=== PATIENT | female | born 1930 | race Caucasian/White ===

== ENCOUNTER 2017-12-14 17:46 | Emergency (ER) | payer MEDICARE ==
[~2017-12-14] VITALS: Ht 162.6 cm; Wt 75.0 kg
[~2017-12-14 17:46] MED LIST: ERGO2000 PO; LISI-170 PO; LOVA20TA2 PO; METF500T4 PO
[2017-12-14] MEDS ORDERED: SODIUM CHLORIDE FLUSH 10ML SYR IVF ONE (18:30)
[2017-12-14] MEDS ORDERED: METOPROLOL 1 MG/ML, 5ML IVPush ONE (18:30)
[2017-12-14 18:58] LABS: BASOPHILS # (AUTO) 0.03 x10^3/uL (0-0.1); BASOPHILS % (AUTO) 0 % (0-1); EOSINOPHILS # (AUTO) 0.06 x10^3/uL (0-0.4); EOSINOPHILS % (AUTO) 1 % (1-7); LYMPHOCYTES # (AUTO) 1.21 x10^3/uL (1-3.4); LYMPHOCYTES % (AUTO) 15 % (22-44); MD NO; MEAN CORPUSCULAR HEMOGLOBIN 28.5 pg (27.0-34.8); MEAN CORPUSCULAR HGB CONC 32.6 g/dL (32.4-35.8); MEAN CORPUSCULAR VOLUME 87.4 fL (80-100); MEAN PLATELET VOLUME 9.3 fL (7.4-10.4); MONOCYTES # (AUTO) 0.64 x10^3/uL (0.2-0.8); MONOCYTES % (AUTO) 8 % (2-9); NEUTROPHILS # (AUTO) 6.16 x10^3/uL (1.8-6.8); NEUTROPHILS % (AUTO) 76 % (42-75); PLATELET COUNT 246 x10^3/uL (130-400); RED BLOOD COUNT 4.52 x10^6/uL (3.82-5.3); RED CELL DISTRIBUTION WIDTH 17.6 % (9.6-15.2)
[2017-12-14 19:04] LABS: INTERNATIONAL NORMALIZED RATIO 0.98 (0.93-1.1); PROTHROMBIN TIME 10.2 Seconds (9.6-11.5)
[2017-12-14 19:09] LABS: TROPONIN I < 0.015 ng/mL (0.000-0.045)
[2017-12-14 19:12] LABS: ALANINE AMINOTRANSFERASE 29 U/L (12-78); ALBUMIN 3.7 g/dL (3.4-5.0); ANION GAP 8 mmol/L (5-15); CALCIUM 8.6 mg/dL (8.5-10.1); CHLORIDE 109 mmol/L (98-107); CREATININE 0.98 mg/dL (0.55-1.02)
[2017-12-14 19:16] LABS: ALKALINE PHOSPHATASE 65 U/L (45-117); BILIRUBIN,TOTAL 0.3 mg/dL (0.2-1.0); TOTAL PROTEIN 6.7 g/dL (6.4-8.2)
[2017-12-14 19:42] VITALS: BP 157/86
== END 2017-12-14 19:53 | disposition home or self-care (01) ==
LOC: ED 19:47
DX: S50.11XA Contusion of right forearm, initial encounter (principal); S50.311A Abrasion of right elbow, initial encounter; R22.0 Localized swelling, mass and lump, head; I48.2 Chronic atrial fibrillation; E11.9 Type 2 diabetes mellitus without complications; I10 Essential (primary) hypertension; Z88.5 Allergy status to narcotic agent; W18.39XA Other fall on same level, initial encounter; Y93.89 Activity, other specified; Y92.098 Other place in other non-institutional residence as the place of occurrence of the external cause; Y99.8 Other external cause status
CPT/HCPCS: 36415; 70450; 71045; 80053; 83880; 84484; 85025; 85610; 85730; 93005; 96374

== ENCOUNTER 2017-12-26 11:09 | Inpatient (IN) | payer MEDICARE ==
[~2017-12-26] VITALS: Ht 162.6 cm; Wt 84.9 kg
[2017-12-26] MEDS ORDERED: METO25TA35 PO (11:48)
[2017-12-26] MEDS ORDERED: ERGO500017 PO (11:48)
[2017-12-26] MEDS ORDERED: FURO20TA3 PO (11:48)
[2017-12-26] MEDS ORDERED: LISI-167 PO (11:48)
[2017-12-26] MEDS ORDERED: ASPI-496 PO (11:48)
[2017-12-26] MEDS ORDERED: SODIUM CHLORIDE FLUSH 10ML SYR IVF ONE (12:00)
[2017-12-26 12:25] LABS: BASOPHILS # (AUTO) 0.01 x10^3/uL (0-0.1); BASOPHILS % (AUTO) 0 % (0-1); EOSINOPHILS # (AUTO) 0.09 x10^3/uL (0-0.4); EOSINOPHILS % (AUTO) 2 % (1-7); LYMPHOCYTES # (AUTO) 1.24 x10^3/uL (1-3.4); LYMPHOCYTES % (AUTO) 21 % (22-44); MD NO; MEAN CORPUSCULAR HEMOGLOBIN 28.7 pg (27.0-34.8); MEAN CORPUSCULAR HGB CONC 32.3 g/dL (32.4-35.8); MEAN CORPUSCULAR VOLUME 88.8 fL (80-100); MEAN PLATELET VOLUME 8.7 fL (7.4-10.4); MONOCYTES # (AUTO) 0.53 x10^3/uL (0.2-0.8); MONOCYTES % (AUTO) 9 % (2-9); NEUTROPHILS # (AUTO) 4.15 x10^3/uL (1.8-6.8); NEUTROPHILS % (AUTO) 69 % (42-75); PLATELET COUNT 283 x10^3/uL (130-400); RED BLOOD COUNT 4.48 x10^6/uL (3.82-5.3); RED CELL DISTRIBUTION WIDTH 17.9 % (9.6-15.2)
[2017-12-26 12:36] LABS: ALBUMIN 3.6 g/dL (3.4-5.0); ANION GAP 8 mmol/L (5-15); CALCIUM 8.9 mg/dL (8.5-10.1); CHLORIDE 110 mmol/L (98-107); CREATININE 1.17 mg/dL (0.55-1.02)
[2017-12-26 12:37] LABS: D-DIMER 0.46 ug/mlFEU (0.00-0.52); INTERNATIONAL NORMALIZED RATIO 0.99 (0.93-1.1); PROTHROMBIN TIME 10.3 Seconds (9.6-11.5)
[2017-12-26 12:47] LABS: FREE T4 (FREE THYROXINE) 1.09 ng/dL (0.76-1.46)
[2017-12-26 12:48] LABS: TROPONIN I 0.141 ng/mL (0.000-0.045)
[2017-12-26] MEDS ORDERED: DOCUSATE 100 MG CAPSULE PO PRN (14:00)
[2017-12-26] MEDS ORDERED: ACETAMINOPHEN 325 MG TABLET PO PRN (14:00)
[2017-12-26] MEDS ORDERED: POLYETHYLENE GLYCOL 17 GM PACKET PO PRN (14:00)
[2017-12-26] MEDS ORDERED: ERGOCALCIFEROL 50,000 UNIT CAPSULE PO SCH (14:00)
[2017-12-26] MEDS ORDERED: hydrALAzine 20 MG/ML, 1ML IVPush PRN (14:00)
[2017-12-26] MEDS ORDERED: BISACODYL 10 MG SUPP PR PRN (14:00)
[2017-12-26] MEDS ORDERED: ONDANSETRON 2MG/ML, 2ML IVPush PRN (14:00)
[2017-12-26] MEDS ORDERED: SODIUM CHLORIDE FLUSH 10ML SYR IVF PRN (14:30)
[2017-12-26 17:23] VITALS: BP 145/79
[2017-12-26] MEDS: ENOXAPARIN 40 MG/0.4 ML SQ SCH (17:52)
[2017-12-26] MEDS: POTASSIUM CHLORIDE 20 MEQ TAB.ER.PRT PO SCH (17:52)
[2017-12-26] MEDS: FUROSEMIDE 20 MG/2 ML IV SCH (17:53)
[2017-12-26 19:16] LABS: TROPONIN I 0.078 ng/mL (0.000-0.045)
[2017-12-26 21:17] VITALS: BP 144/67
[2017-12-26] MEDS: LOVASTATIN 20 MG TABLET PO SCH ×2 (21:39→21:46)
[2017-12-26] MEDS: metFORMIN 500 MG TABLET PO SCH (21:39)
[2017-12-26] MEDS: SODIUM CHLORIDE FLUSH 10ML SYR IVF SCH (21:39)
[2017-12-26 22:18] LABS: CLOSTRIDIUM DIFFICILE ANTIGEN NEGATIVE; CLOSTRIDIUM DIFFICILE TOXIN NEGATIVE (Negative)
[2017-12-27 01:21] LABS: TROPONIN I 0.073 ng/mL (0.000-0.045)
[2017-12-27 02:10] VITALS: BP 139/59
[2017-12-27] MEDS ORDERED: METOPROLOL SUCCINATE 25 MG TAB.ER.24H PO SCH (06:00)
[2017-12-27 06:26] LABS: ANION GAP 7 mmol/L (5-15); CALCIUM 8.3 mg/dL (8.5-10.1); CHLORIDE 111 mmol/L (98-107)
[2017-12-27 06:29] LABS: BASOPHILS # (AUTO) 0.03 x10^3/uL (0-0.1); BASOPHILS % (AUTO) 1 % (0-1); CREATININE 0.94 mg/dL (0.55-1.02); EOSINOPHILS # (AUTO) 0.09 x10^3/uL (0-0.4); EOSINOPHILS % (AUTO) 2 % (1-7); LYMPHOCYTES # (AUTO) 1.32 x10^3/uL (1-3.4); LYMPHOCYTES % (AUTO) 24 % (22-44); MD NO; MEAN CORPUSCULAR HEMOGLOBIN 28.7 pg (27.0-34.8); MEAN CORPUSCULAR HGB CONC 32.6 g/dL (32.4-35.8); MEAN CORPUSCULAR VOLUME 87.9 fL (80-100); MEAN PLATELET VOLUME 9.1 fL (7.4-10.4); MONOCYTES # (AUTO) 0.61 x10^3/uL (0.2-0.8); MONOCYTES % (AUTO) 11 % (2-9); NEUTROPHILS # (AUTO) 3.55 x10^3/uL (1.8-6.8); NEUTROPHILS % (AUTO) 64 % (42-75); PLATELET COUNT 238 x10^3/uL (130-400); RED BLOOD COUNT 3.88 x10^6/uL (3.82-5.3); RED CELL DISTRIBUTION WIDTH 17.1 % (9.6-15.2)
[2017-12-27 06:30] LABS: HEMOGRAM NOTE RECHECKED
[2017-12-27] MEDS: FUROSEMIDE 20 MG/2 ML IV SCH ×2 (06:31→16:35)
[2017-12-27 09:43] VITALS: BP 100/57
[2017-12-27] MEDS: metFORMIN 500 MG TABLET PO SCH ×2 (09:48→20:48)
[2017-12-27] MEDS: SODIUM CHLORIDE FLUSH 10ML SYR IVF SCH ×2 (09:48→20:48)
[2017-12-27] MEDS: POTASSIUM CHLORIDE 20 MEQ TAB.ER.PRT PO SCH ×2 (09:48→16:35)
[2017-12-27] MEDS: ASPIRIN 81 MG TABLET EC PO SCH (09:48)
[2017-12-27] MEDS: LISINOPRIL 10 MG TABLET PO SCH ×2 (09:48→10:00)
[2017-12-27] MEDS: ENOXAPARIN 40 MG/0.4 ML SQ SCH (15:15)
[2017-12-27 16:23] VITALS: BP 107/57
[2017-12-27 20:00] VITALS: BP 125/71
[2017-12-27] MEDS: LOVASTATIN 20 MG TABLET PO SCH (20:48)
[2017-12-28 01:10] VITALS: BP 112/67
[2017-12-28 04:28] VITALS: BP 134/63
[2017-12-28 05:48] LABS: ANION GAP 8 mmol/L (5-15); CALCIUM 8.9 mg/dL (8.5-10.1); CHLORIDE 105 mmol/L (98-107)
[2017-12-28 05:50] LABS: CREATININE 1.06 mg/dL (0.55-1.02)
[2017-12-28] MEDS: FUROSEMIDE 20 MG/2 ML IV SCH ×2 (06:22→17:21)
[2017-12-28 07:00] VITALS: BP 107/47
[2017-12-28] MEDS: SODIUM CHLORIDE FLUSH 10ML SYR IVF SCH ×2 (08:35→20:47)
[2017-12-28] MEDS: ASPIRIN 81 MG TABLET EC PO SCH (08:35)
[2017-12-28] MEDS: metFORMIN 500 MG TABLET PO SCH ×2 (08:35→20:46)
[2017-12-28] MEDS: POTASSIUM CHLORIDE 20 MEQ TAB.ER.PRT PO SCH ×2 (08:35→17:21)
[2017-12-28 13:00] VITALS: BP 126/62
[2017-12-28] MEDS: ENOXAPARIN 40 MG/0.4 ML SQ SCH (15:12)
[2017-12-28 19:42] VITALS: BP 137/71
[2017-12-28] MEDS: LOVASTATIN 20 MG TABLET PO SCH (20:46)
[2017-12-29 01:14] VITALS: BP 122/73
[2017-12-29 05:44] LABS: ANION GAP 6 mmol/L (5-15); CALCIUM 8.4 mg/dL (8.5-10.1); CHLORIDE 104 mmol/L (98-107)
[2017-12-29 05:46] LABS: CREATININE 1.31 mg/dL (0.55-1.02)
[2017-12-29 07:30] VITALS: BP 114/67
[2017-12-29] MEDS: POTASSIUM CHLORIDE 20 MEQ TAB.ER.PRT PO SCH (08:03)
[2017-12-29] MEDS: FUROSEMIDE 20 MG/2 ML IV SCH (08:03)
[2017-12-29] MEDS: ASPIRIN 81 MG TABLET EC PO SCH (08:34)
[2017-12-29] MEDS: metFORMIN 500 MG TABLET PO SCH (08:34)
[2017-12-29] MEDS: SODIUM CHLORIDE FLUSH 10ML SYR IVF SCH (08:35)
[2017-12-29] MEDS ORDERED: FUROSEMIDE 40 MG TABLET PO SCH (09:00)
[2017-12-29] MEDS ORDERED: POTASSIUM CHLORIDE 20 MEQ TAB.ER.PRT PO SCH (09:00)
[2017-12-29] MEDS ORDERED: POTA20TA6 PO (11:15)
[2017-12-29] MEDS ORDERED: FURO40TA6 PO (11:15)
[2017-12-29 12:35] VITALS: BP 123/59
[2017-12-29] MEDS ORDERED: ENOXAPARIN 30 MG/0.3 ML SQ SCH (15:00)
== END 2017-12-29 18:58 | disposition home or self-care (01) | DRG 291 ==
LOC: ED 11:29 → EDIP 13:54 → 5SO 15:51
PROVIDERS: ADMIT Internal Medicine Cardiovascular Disease; ATTEND Internal Medicine Cardiovascular Disease
DX: I11.0 Hypertensive heart disease with heart failure (principal); N17.0 Acute kidney failure with tubular necrosis; E11.65 Type 2 diabetes mellitus with hyperglycemia; E83.42 Hypomagnesemia; I27.20 Pulmonary hypertension, unspecified; J98.11 Atelectasis; I50.9 Heart failure, unspecified; I48.91 Unspecified atrial fibrillation; E78.5 Hyperlipidemia, unspecified; G47.30 Sleep apnea, unspecified; I08.0 Rheumatic disorders of both mitral and aortic valves; Z66 Do not resuscitate; Z60.2 Problems related to living alone; Z79.84 Long term (current) use of oral hypoglycemic drugs; Z82.3 Family history of stroke; Z82.49 Family history of ischemic heart disease and other diseases of the circulatory system; Z87.891 Personal history of nicotine dependence; Z90.710 Acquired absence of both cervix and uterus; Z95.2 Presence of prosthetic heart valve; Z79.899 Other long term (current) drug therapy; Z79.82 Long term (current) use of aspirin; Z90.89 Acquired absence of other organs; Z90.49 Acquired absence of other specified parts of digestive tract
CPT/HCPCS: 36415; 71045; 80048; 82040; 83735; 84439; 84443; 84484; 85025; 85379; 85610; 85730; 87324; 93005; 93306; 99285; J1650; J1940

== ENCOUNTER → 2018-02-09 | Outpatient (CLI) | payer MEDICARE ==
[~2018-02-09] MED LIST changes: +APIX2.5T PO; +ASPI-496 PO; +ERGO500017 PO; +FURO20TA3 PO; +FURO40TA6 PO; +LISI-167 PO; -METF500T4 PO; +METF500T5 PO; +METO25TA35 PO; +METOPROLOL 1 MG/ML, 5ML ONE; +OMNIPAQUE 350 MG/ML, 150 ML BOTTLE ONE; +POTA10TA6 PO; +POTA20TA6 PO; +SITA1TBM PO
[2018-02-09 13:30] LABS: CREATININE 1.08 mg/dL (0.55-1.02)
== END | disposition home or self-care (01) ==
LOC: RAD 12:13
PROVIDERS: ATTEND Internal Medicine Cardiovascular Disease
DX: I35.0 Nonrheumatic aortic (valve) stenosis (principal); I65.23 Occlusion and stenosis of bilateral carotid arteries; I70.0 Atherosclerosis of aorta; I25.10 Atherosclerotic heart disease of native coronary artery without angina pectoris; I11.9 Hypertensive heart disease without heart failure; E11.8 Type 2 diabetes mellitus with unspecified complications; E78.5 Hyperlipidemia, unspecified; E04.1 Nontoxic single thyroid nodule; N20.0 Calculus of kidney; K82.8 Other specified diseases of gallbladder; K76.0 Fatty (change of) liver, not elsewhere classified; Z88.5 Allergy status to narcotic agent
CPT/HCPCS: 36415; 71275; 74174; 82565; 93880; 94060; 94726; 94729; Q9967

== ENCOUNTER 2018-02-13 09:43 | Day surgery (SDC) | payer MEDICARE ==
[~2018-02-13] VITALS: Ht 162.6 cm; Wt 75.9 kg
[~2018-02-13 09:43] MED LIST changes: -APIX2.5T PO; -METOPROLOL 1 MG/ML, 5ML ONE; -OMNIPAQUE 350 MG/ML, 150 ML BOTTLE ONE; -POTA10TA6 PO; -SITA1TBM PO
[2018-02-13] MEDS ORDERED: SODIUM CHLORIDE 0.9% 1,000 ML IV ONE (10:13)
[2018-02-13 10:16] VITALS: BP 127/56
[2018-02-13] MEDS ORDERED: SITA1TBM PO (10:26)
[2018-02-13] MEDS ORDERED: APIX2.5T PO (10:26)
[2018-02-13] MEDS ORDERED: POTA10TA6 PO (10:27)
[2018-02-13 10:59] LABS: BASOPHILS # (AUTO) 0.03 x10^3/uL (0-0.1); BASOPHILS % (AUTO) 1 % (0-1); EOSINOPHILS # (AUTO) 0.04 x10^3/uL (0-0.4); EOSINOPHILS % (AUTO) 1 % (1-7); LYMPHOCYTES # (AUTO) 1.37 x10^3/uL (1-3.4); LYMPHOCYTES % (AUTO) 27 % (22-44); MD NO; MEAN CORPUSCULAR HEMOGLOBIN 28.4 pg (27.0-34.8); MEAN CORPUSCULAR HGB CONC 32.3 g/dL (32.4-35.8); MEAN CORPUSCULAR VOLUME 87.8 fL (80-100); MEAN PLATELET VOLUME 9.1 fL (7.4-10.4); MONOCYTES # (AUTO) 0.53 x10^3/uL (0.2-0.8); MONOCYTES % (AUTO) 11 % (2-9); NEUTROPHILS # (AUTO) 3.08 x10^3/uL (1.8-6.8); NEUTROPHILS % (AUTO) 61 % (42-75); PLATELET COUNT 222 x10^3/uL (130-400); RED BLOOD COUNT 4.44 x10^6/uL (3.82-5.3); RED CELL DISTRIBUTION WIDTH 15.7 % (9.6-15.2)
[2018-02-13 11:13] LABS: ANION GAP 8 mmol/L (5-15); CALCIUM 8.9 mg/dL (8.5-10.1); CHLORIDE 108 mmol/L (98-107)
[2018-02-13] MEDS ORDERED: MIDAZOLAM 1 MG/ML, 2ML ONE (11:54)
[2018-02-13] MEDS ORDERED: FENTANYL PF 100 MCG/2ML ONE (11:54)
[2018-02-13] MEDS ORDERED: VERAPAMIL 2.5 MG/ML, 2ML ONE (11:54)
[2018-02-13] MEDS ORDERED: HEPARIN 1,000 UNITS/ML, 10ML ONE (11:55)
[2018-02-13] MEDS ORDERED: LIDOCAINE-MPF 2% ,5ML ONE (11:55)
== END 2018-02-13 15:45 | disposition home or self-care (01) ==
LOC: CACL 09:43
PROVIDERS: ATTEND Internal Medicine Cardiovascular Disease
DX: I25.10 Atherosclerotic heart disease of native coronary artery without angina pectoris (principal); I10 Essential (primary) hypertension; E11.9 Type 2 diabetes mellitus without complications; I35.9 Nonrheumatic aortic valve disorder, unspecified; E78.2 Mixed hyperlipidemia; I27.20 Pulmonary hypertension, unspecified; I50.33 Acute on chronic diastolic (congestive) heart failure; Z79.82 Long term (current) use of aspirin; Z79.899 Other long term (current) drug therapy; Z88.5 Allergy status to narcotic agent; Z88.8 Allergy status to other drugs, medicaments and biological substances
CPT/HCPCS: 36415; 80048; 85025; 93454; 99156; C1769; C1894; J1644; J2250; J3010; J3490; Q9967

== ENCOUNTER 2018-02-21 07:37 | Inpatient (IN) | payer MEDICARE ==
[~2018-02-21] VITALS: Ht 162.6 cm; Wt 73.9 kg
[~2018-02-21 07:37] MED LIST changes: +APIX2.5T PO; +POTA10TA6 PO; +SITA1TBM PO
[2018-02-21] MEDS ORDERED: SODIUM CHLORIDE 0.9% 1,000 ML IV ONE (08:01)
[2018-02-21 08:07] VITALS: BP 126/53
[2018-02-21] MEDS ORDERED: CHLORHEXIDINE 15 ML BOTTLE MM PRN (08:30)
[2018-02-21] MEDS ORDERED: ONDANSETRON 2MG/ML, 2ML IVPush PRN (08:30)
[2018-02-21 08:35] LABS: BASOPHILS # (AUTO) 0.03 x10^3/uL (0-0.1); BASOPHILS % (AUTO) 1 % (0-1); EOSINOPHILS # (AUTO) 0.08 x10^3/uL (0-0.4); EOSINOPHILS % (AUTO) 1 % (1-7); LYMPHOCYTES # (AUTO) 1.91 x10^3/uL (1-3.4); LYMPHOCYTES % (AUTO) 30 % (22-44); MD NO; MEAN CORPUSCULAR HEMOGLOBIN 28.5 pg (27.0-34.8); MEAN CORPUSCULAR HGB CONC 32.3 g/dL (32.4-35.8); MEAN CORPUSCULAR VOLUME 88.3 fL (80-100); MEAN PLATELET VOLUME 9.2 fL (7.4-10.4); MONOCYTES # (AUTO) 0.75 x10^3/uL (0.2-0.8); MONOCYTES % (AUTO) 12 % (2-9); NEUTROPHILS # (AUTO) 3.62 x10^3/uL (1.8-6.8); NEUTROPHILS % (AUTO) 57 % (42-75); PLATELET COUNT 223 x10^3/uL (130-400); RED BLOOD COUNT 4.81 x10^6/uL (3.82-5.3); RED CELL DISTRIBUTION WIDTH 15.6 % (9.6-15.2)
[2018-02-21 08:44] LABS: INTERNATIONAL NORMALIZED RATIO 0.96 (0.93-1.1)
[2018-02-21 08:46] LABS: ALANINE AMINOTRANSFERASE 19 U/L (12-78); ALBUMIN 3.6 g/dL (3.4-5.0); ANION GAP 9 mmol/L (5-15); CALCIUM 8.8 mg/dL (8.5-10.1); CHLORIDE 104 mmol/L (98-107); CREATININE 1.15 mg/dL (0.55-1.02)
[2018-02-21 08:50] LABS: ALKALINE PHOSPHATASE 49 U/L (45-117); BILIRUBIN,TOTAL 0.3 mg/dL (0.2-1.0); TOTAL PROTEIN 6.6 g/dL (6.4-8.2)
[2018-02-21] MEDS ORDERED: HEPARIN 1,000 UNITS/ML, 10ML ONE ×2 (09:36→10:48)
[2018-02-21] MEDS ORDERED: PROTAMINE SULFATE 10 MG/ML, 5ML ONE (09:36)
[2018-02-21] MEDS ORDERED: CEFAZOLIN 1,000 MG ONE (09:36)
[2018-02-21] MEDS ORDERED: FENTANYL PF 250 MCG/5ML ONE (09:43)
[2018-02-21] MEDS ORDERED: PHENYLEPHRINE 10 MG/ML ONE (09:55)
[2018-02-21] MEDS ORDERED: ONDANSETRON 2MG/ML, 2ML ONE (10:49)
[2018-02-21] MEDS ORDERED: PROPOFOL 10 MG/ML, 20ML ONE (10:49)
[2018-02-21] MEDS ORDERED: ROCURONIUM 10MG/ML,5ML ONE (10:53)
[2018-02-21] MEDS ORDERED: ACETAMINOPHEN 325 MG TABLET PO PRN (11:30)
[2018-02-21] MEDS: INSULIN REGULAR 100 UNITS/ML, 3ML VIAL SQ-INSULIN SCH ×3 (11:30→22:01)
[2018-02-21] MEDS ORDERED: DEXTROSE 4 GM TAB.CHEW PO PRN (11:30)
[2018-02-21] MEDS ORDERED: hydrALAzine 20 MG/ML, 1ML IVPush PRN (11:30)
[2018-02-21] MEDS ORDERED: LABETALOL 20 MG/4 ML IVPush PRN (11:30)
[2018-02-21] MEDS ORDERED: GLUCAGON 1 MG IM PRN (11:30)
[2018-02-21] MEDS ORDERED: DEXTROSE 50%, 50ML SYRINGE IVPush PRN (11:30)
[2018-02-21] MEDS: SODIUM CHLORIDE 0.9% 1,000 ML IV SCH (12:05)
[2018-02-21] MEDS: SODIUM CHLORIDE FLUSH 10ML SYR IVF SCH ×2 (12:09→21:54)
[2018-02-21] MEDS ORDERED: CLOPIDOGREL 300 MG TABLET PO ONE (21:00)
[2018-02-21] MEDS: LOVASTATIN 20 MG TABLET PO SCH (21:54)
[2018-02-21] MEDS: APIXABAN 2.5 MG TABLET PO SCH (21:54)
[2018-02-22] MEDS: SODIUM CHLORIDE 0.9% 1,000 ML IV SCH (00:47)
[2018-02-22 04:00] VITALS: BP 102/48
[2018-02-22 04:38] LABS: BASOPHILS # (AUTO) 0.03 x10^3/uL (0-0.1); BASOPHILS % (AUTO) 0 % (0-1); EOSINOPHILS # (AUTO) 0.05 x10^3/uL (0-0.4); EOSINOPHILS % (AUTO) 1 % (1-7); LYMPHOCYTES # (AUTO) 1.04 x10^3/uL (1-3.4); LYMPHOCYTES % (AUTO) 14 % (22-44); MD NO; MEAN CORPUSCULAR HEMOGLOBIN 28.7 pg (27.0-34.8); MEAN CORPUSCULAR HGB CONC 32.4 g/dL (32.4-35.8); MEAN CORPUSCULAR VOLUME 88.6 fL (80-100); MEAN PLATELET VOLUME 9.3 fL (7.4-10.4); MONOCYTES # (AUTO) 0.72 x10^3/uL (0.2-0.8); MONOCYTES % (AUTO) 10 % (2-9); NEUTROPHILS # (AUTO) 5.55 x10^3/uL (1.8-6.8); NEUTROPHILS % (AUTO) 75 % (42-75); PLATELET COUNT 164 x10^3/uL (130-400); RED BLOOD COUNT 4.14 x10^6/uL (3.82-5.3); RED CELL DISTRIBUTION WIDTH 15.9 % (9.6-15.2)
[2018-02-22 04:53] LABS: CHLORIDE 107 mmol/L (98-107)
[2018-02-22 04:58] LABS: ALBUMIN 2.9 g/dL (3.4-5.0); ANION GAP 7 mmol/L (5-15); CREATININE 0.85 mg/dL (0.55-1.02)
[2018-02-22] MEDS: INSULIN REGULAR 100 UNITS/ML, 3ML VIAL SQ-INSULIN SCH ×4 (07:00→20:16)
[2018-02-22] MEDS: ASPIRIN 81 MG TABLET EC PO SCH (09:01)
[2018-02-22] MEDS: CLOPIDOGREL 75 MG TABLET PO SCH (09:01)
[2018-02-22] MEDS: POTASSIUM CHLORIDE 10 MEQ TABLET.ER PO SCH (09:02)
[2018-02-22] MEDS: LISINOPRIL 10 MG TABLET PO SCH (09:02)
[2018-02-22] MEDS: FUROSEMIDE 40 MG TABLET PO SCH (09:02)
[2018-02-22] MEDS: APIXABAN 2.5 MG TABLET PO SCH ×2 (09:02→20:16)
[2018-02-22] MEDS: SODIUM CHLORIDE FLUSH 10ML SYR IVF SCH ×2 (09:13→20:17)
[2018-02-22 13:04] VITALS: BP 130/65
[2018-02-22 19:08] VITALS: BP 98/56
[2018-02-22] MEDS: LOVASTATIN 20 MG TABLET PO SCH (20:16)
[2018-02-23 03:17] VITALS: BP 106/55
[2018-02-23 06:58] VITALS: BP 116/65
[2018-02-23] MEDS: INSULIN REGULAR 100 UNITS/ML, 3ML VIAL SQ-INSULIN SCH (07:00)
[2018-02-23] MEDS: SODIUM CHLORIDE FLUSH 10ML SYR IVF SCH (09:00)
[2018-02-23] MEDS: APIXABAN 2.5 MG TABLET PO SCH (09:08)
[2018-02-23] MEDS: POTASSIUM CHLORIDE 10 MEQ TABLET.ER PO SCH (09:08)
[2018-02-23] MEDS: LISINOPRIL 10 MG TABLET PO SCH (09:09)
[2018-02-23] MEDS: ASPIRIN 81 MG TABLET EC PO SCH (09:09)
[2018-02-23] MEDS: FUROSEMIDE 40 MG TABLET PO SCH (09:09)
[2018-02-23] MEDS: CLOPIDOGREL 75 MG TABLET PO SCH (09:09)
[2018-02-23] MEDS ORDERED: FURO40TA6 PO (11:06)
[2018-02-23] MEDS ORDERED: ASPI-621 PO (11:23)
[2018-02-23 12:15] VITALS: BP 127/71
== END 2018-02-23 13:00 | disposition home or self-care (01) | DRG 266 ==
LOC: ORIP 07:37 → CCU 11:29 → 5SO 02-22 12:39
PROVIDERS: ADMIT Internal Medicine Cardiovascular Disease; ATTEND Internal Medicine Cardiovascular Disease
PROC: B246ZZ4 Ultrasonography of Right and Left Heart, Transesophageal (ICD-10-PCS; 2018-02-21)
PROC: B3101ZZ Fluoroscopy of Thoracic Aorta using Low Osmolar Contrast (ICD-10-PCS; 2018-02-21)
PROC: 5A1223Z Performance of Cardiac Pacing, Continuous (ICD-10-PCS; 2018-02-21)
PROC: 02RF38Z Replacement of Aortic Valve with Zooplastic Tissue, Percutaneous Approach (ICD-10-PCS; principal; 2018-02-21 10:00)
DX: I35.0 Nonrheumatic aortic (valve) stenosis (principal); Z00.6 Encounter for examination for normal comparison and control in clinical research program; I50.33 Acute on chronic diastolic (congestive) heart failure; E11.9 Type 2 diabetes mellitus without complications; E78.5 Hyperlipidemia, unspecified; H91.90 Unspecified hearing loss, unspecified ear; I11.0 Hypertensive heart disease with heart failure; I25.10 Atherosclerotic heart disease of native coronary artery without angina pectoris; I27.20 Pulmonary hypertension, unspecified; I45.10 Unspecified right bundle-branch block; I48.0 Paroxysmal atrial fibrillation; Z87.891 Personal history of nicotine dependence
CPT/HCPCS: 33361; 36415; 80048; 80053; 82040; 82962; 83880; 85025; 85347; 85610; 85730; 86850; 86900; 86923; 87081; 93005; 93306; 93312; 93321; 93325; 93355; C1760; C1769; C1894; J0690; J1644; J2405; J2704; J2720; J3010; J2370; J7030; Q9967

== ENCOUNTER 2018-05-18 19:29 | Emergency (ER) | payer MEDICARE ==
[~2018-05-18] VITALS: Ht 162.6 cm; Wt 80.0 kg
[~2018-05-18 19:29] MED LIST changes: +ASPI-621 PO; +METF500T17 PO; -METF500T5 PO
[2018-05-18] MEDS ORDERED: SODIUM CHLORIDE FLUSH 10ML SYR IVF ONE (20:00)
[2018-05-18 20:14] LABS: INTERNATIONAL NORMALIZED RATIO 1.01 (0.93-1.1); PROTHROMBIN TIME 10.4 Seconds (9.6-11.5)
[2018-05-18 20:16] LABS: ALANINE AMINOTRANSFERASE 19 U/L (12-78); ALBUMIN 3.4 g/dL (3.4-5.0); ANION GAP 7 mmol/L (5-15); CALCIUM 8.9 mg/dL (8.5-10.1); CHLORIDE 110 mmol/L (98-107); CREATININE 0.92 mg/dL (0.55-1.02)
[2018-05-18 20:21] LABS: ALKALINE PHOSPHATASE 74 U/L (45-117); BILIRUBIN,TOTAL 0.3 mg/dL (0.2-1.0); FREE T4 (FREE THYROXINE) 1.21 ng/dL (0.76-1.46); TOTAL PROTEIN 6.6 g/dL (6.4-8.2); TROPONIN I < 0.015 ng/mL (0.000-0.045)
[2018-05-18 20:26] LABS: THYROID STIMULATING HORMONE 0.818 mIU/L (0.358-3.740)
[2018-05-18 20:27] LABS: BASOPHILS # (AUTO) 0.03 x10^3/uL (0-0.1); BASOPHILS % (AUTO) 0 % (0-1); EOSINOPHILS % (AUTO) 2 % (1-7); LYMPHOCYTES # (AUTO) 1.26 x10^3/uL (1-3.4); LYMPHOCYTES % (AUTO) 22 % (22-44); MD NO; MEAN CORPUSCULAR HEMOGLOBIN 28.6 pg (27.0-34.8); MEAN CORPUSCULAR HGB CONC 32.5 g/dL (32.4-35.8); MEAN CORPUSCULAR VOLUME 87.9 fL (80-100); MEAN PLATELET VOLUME 8.8 fL (7.4-10.4); MONOCYTES % (AUTO) 12 % (2-9); NEUTROPHILS # (AUTO) 3.66 x10^3/uL (1.8-6.8); NEUTROPHILS % (AUTO) 64 % (42-75); PLATELET COUNT 203 x10^3/uL (130-400); RED BLOOD COUNT 4.25 x10^6/uL (3.82-5.3); RED CELL DISTRIBUTION WIDTH 16.2 % (9.6-15.2)
[2018-05-18 21:00] VITALS: BP 138/55
== END 2018-05-18 21:41 | disposition home or self-care (01) ==
LOC: ED 21:16
DX: M79.89 Other specified soft tissue disorders (principal); I11.0 Hypertensive heart disease with heart failure; I50.9 Heart failure, unspecified; E11.9 Type 2 diabetes mellitus without complications; I48.91 Unspecified atrial fibrillation; Z90.49 Acquired absence of other specified parts of digestive tract; Z88.6 Allergy status to analgesic agent; W18.30XA Fall on same level, unspecified, initial encounter; Y93.01 Activity, walking, marching and hiking; Y99.8 Other external cause status; Y92.099 Unspecified place in other non-institutional residence as the place of occurrence of the external cause
CPT/HCPCS: 36415; 71045; 80053; 83735; 83880; 84439; 84443; 84484; 85025; 85610; 85730; 93005; 99285

== ENCOUNTER 2018-05-30 12:44 | Inpatient (IN) | payer MEDICARE ==
[~2018-05-30] VITALS: Ht 157.5 cm; Wt 76.9 kg
[2018-05-30] MEDS ORDERED: SODIUM CHLORIDE FLUSH 10ML SYR IVF ONE (13:30)
[2018-05-30] MEDS ORDERED: CA C1TAB63 PO (13:46)
[2018-05-30 14:29] LABS: BASOPHILS # (AUTO) 0.04 x10^3/uL (0-0.1); BASOPHILS % (AUTO) 1 % (0-1); EOSINOPHILS # (AUTO) 0.18 x10^3/uL (0-0.4); EOSINOPHILS % (AUTO) 3 % (1-7); LYMPHOCYTES # (AUTO) 1.34 x10^3/uL (1-3.4); LYMPHOCYTES % (AUTO) 21 % (22-44); MD NO; MEAN CORPUSCULAR HEMOGLOBIN 28.3 pg (27.0-34.8); MEAN CORPUSCULAR HGB CONC 32.2 g/dL (32.4-35.8); MEAN PLATELET VOLUME 9.7 fL (7.4-10.4); MONOCYTES # (AUTO) 0.68 x10^3/uL (0.2-0.8); MONOCYTES % (AUTO) 11 % (2-9); NEUTROPHILS # (AUTO) 4.23 x10^3/uL (1.8-6.8); NEUTROPHILS % (AUTO) 65 % (42-75); PLATELET COUNT 189 x10^3/uL (130-400); RED BLOOD COUNT 4.27 x10^6/uL (3.82-5.3); RED CELL DISTRIBUTION WIDTH 16.8 % (9.6-15.2)
[2018-05-30 14:32] LABS: ALANINE AMINOTRANSFERASE 22 U/L (12-78); ALBUMIN 3.4 g/dL (3.4-5.0); ANION GAP 8 mmol/L (5-15); CALCIUM 8.7 mg/dL (8.5-10.1); CHLORIDE 110 mmol/L (98-107); CREATININE 0.93 mg/dL (0.55-1.02)
[2018-05-30 14:37] LABS: ALKALINE PHOSPHATASE 65 U/L (45-117); BILIRUBIN,TOTAL 0.4 mg/dL (0.2-1.0); TOTAL PROTEIN 6.5 g/dL (6.4-8.2); TROPONIN I < 0.015 ng/mL (0.000-0.045)
[2018-05-30 14:42] LABS: INTERNATIONAL NORMALIZED RATIO 1.07 (0.93-1.1)
[2018-05-30] MEDS ORDERED: CEFAZOLIN PMX 1GM/50ML 50 ML IV ONE (15:00)
[2018-05-30] MEDS ORDERED: CEFTRIAXONE PMX 1GM/50ML 50 ML IV ONE (15:00)
[2018-05-30] MEDS ORDERED: CEFTRIAXONE PMX 1GM/50ML 50 ML ONE (15:42)
[2018-05-30 16:26] LABS: MICROSCOPIC AUTO
[2018-05-30 16:28] LABS: CULTURE INDICATED? YES
[2018-05-30] MEDS ORDERED: SODIUM CHLORIDE 0.9% 1,000 ML IV SCH (17:06)
[2018-05-30] MEDS ORDERED: ONDANSETRON 2MG/ML, 2ML IVPush PRN (17:30)
[2018-05-30] MEDS ORDERED: ACETAMINOPHEN 325 MG TABLET PO PRN (17:30)
[2018-05-30] MEDS ORDERED: BISACODYL 10 MG SUPP PR PRN (17:30)
[2018-05-30] MEDS ORDERED: POLYETHYLENE GLYCOL 17 GM PACKET PO PRN (17:30)
[2018-05-30] MEDS ORDERED: VANCOMYCIN PER PHARMACY MC PRN (17:30)
[2018-05-30] MEDS ORDERED: ENALAPRILAT 1.25 MG/ML, 2ML IVPush PRN (17:30)
[2018-05-30] MEDS ORDERED: DOCUSATE 100 MG CAPSULE PO PRN (17:30)
[2018-05-30 18:11] LABS: FOLATE LEVEL > 20.0 ng/mL (3.1-17.5)
[2018-05-30] MEDS ORDERED: PHARMACOKINETIC MONITORING MC PRN (18:30)
[2018-05-30] MEDS ORDERED: ERGOCALCIFEROL 50,000 UNIT CAPSULE PO SCH (19:00)
[2018-05-30 19:01] VITALS: BP 137/55
[2018-05-30 19:58] VITALS: BP 137/55
[2018-05-30] MEDS: AMPICILLIN/SULBACTAM 3 GM in SODIUM CHLORIDE 0.9% 100 ML IV SCH (20:25)
[2018-05-30] MEDS: LOVASTATIN 20 MG TABLET PO SCH (20:29)
[2018-05-30] MEDS: LINAGLIPTIN 5 MG TAB PO SCH (20:29)
[2018-05-30] MEDS: APIXABAN 2.5 MG TABLET PO SCH (20:29)
[2018-05-30] MEDS: metFORMIN XR 500 MG TAB.ER.24H PO SCH (20:34)
[2018-05-30 20:58] LABS: TROPONIN I < 0.015 ng/mL (0.000-0.045)
[2018-05-31] MEDS: VANCOMYCIN 1,400 MG in SODIUM CHLORIDE 0.9% 250 ML IV SCH (00:10)
[2018-05-31 01:10] VITALS: BP 131/59
[2018-05-31 02:10] LABS: ANION GAP 7 mmol/L (5-15); CALCIUM 8.1 mg/dL (8.5-10.1); CHLORIDE 111 mmol/L (98-107); CREATININE 0.92 mg/dL (0.55-1.02)
[2018-05-31 02:21] LABS: TROPONIN I < 0.015 ng/mL (0.000-0.045)
[2018-05-31] MEDS: AMPICILLIN/SULBACTAM 3 GM in SODIUM CHLORIDE 0.9% 100 ML IV SCH ×4 (02:55→21:17)
[2018-05-31 07:30] VITALS: BP 115/67
[2018-05-31] MEDS: POTASSIUM CHLORIDE 10 MEQ TABLET.ER PO SCH (08:35)
[2018-05-31] MEDS: CALCIUM/VITAMIN D3 250-125 TABLET PO SCH (08:35)
[2018-05-31] MEDS: APIXABAN 2.5 MG TABLET PO SCH ×2 (08:35→21:17)
[2018-05-31] MEDS: FUROSEMIDE 20 MG TABLET PO SCH (08:35)
[2018-05-31] MEDS: ASPIRIN 81 MG TABLET EC PO SCH (08:35)
[2018-05-31] MEDS ORDERED: LISINOPRIL 10 MG TABLET PO SCH (09:00)
[2018-05-31 14:30] VITALS: BP 124/69
[2018-05-31 20:23] VITALS: BP 143/85
[2018-05-31] MEDS: LINAGLIPTIN 5 MG TAB PO SCH (21:17)
[2018-05-31] MEDS: LOVASTATIN 20 MG TABLET PO SCH (21:17)
[2018-05-31] MEDS: metFORMIN XR 500 MG TAB.ER.24H PO SCH (21:18)
[2018-06-01 00:32] VITALS: BP 152/67
[2018-06-01] MEDS: AMPICILLIN/SULBACTAM 3 GM in SODIUM CHLORIDE 0.9% 100 ML IV SCH ×4 (03:47→21:48)
[2018-06-01 05:28] LABS: BASOPHILS # (AUTO) 0.03 x10^3/uL (0-0.1); BASOPHILS % (AUTO) 0 % (0-1); EOSINOPHILS # (AUTO) 0.19 x10^3/uL (0-0.4); EOSINOPHILS % (AUTO) 3 % (1-7); LYMPHOCYTES # (AUTO) 0.93 x10^3/uL (1-3.4); LYMPHOCYTES % (AUTO) 14 % (22-44); MD NO; MEAN CORPUSCULAR HEMOGLOBIN 28.4 pg (27.0-34.8); MEAN CORPUSCULAR VOLUME 88.5 fL (80-100); MEAN PLATELET VOLUME 10.1 fL (7.4-10.4); MONOCYTES # (AUTO) 0.76 x10^3/uL (0.2-0.8); MONOCYTES % (AUTO) 11 % (2-9); NEUTROPHILS # (AUTO) 4.73 x10^3/uL (1.8-6.8); NEUTROPHILS % (AUTO) 71 % (42-75); PLATELET COUNT 171 x10^3/uL (130-400); RED BLOOD COUNT 3.85 x10^6/uL (3.82-5.3); RED CELL DISTRIBUTION WIDTH 16.6 % (9.6-15.2)
[2018-06-01 05:33] LABS: CALCIUM 8.3 mg/dL (8.5-10.1); CHLORIDE 108 mmol/L (98-107)
[2018-06-01 05:36] LABS: ANION GAP 8 mmol/L (5-15); CREATININE 1.03 mg/dL (0.55-1.02)
[2018-06-01 07:24] VITALS: BP 127/58
[2018-06-01] MEDS: CALCIUM/VITAMIN D3 250-125 TABLET PO SCH (08:51)
[2018-06-01] MEDS: POTASSIUM CHLORIDE 10 MEQ TABLET.ER PO SCH (08:51)
[2018-06-01] MEDS: ASPIRIN 81 MG TABLET EC PO SCH (08:51)
[2018-06-01] MEDS: APIXABAN 2.5 MG TABLET PO SCH ×2 (08:51→19:43)
[2018-06-01] MEDS: FUROSEMIDE 20 MG TABLET PO SCH (08:51)
[2018-06-01] MEDS ORDERED: AMPI3VIA IV (10:49)
[2018-06-01] MEDS ORDERED: VANC1VIA3 IV (10:49)
[2018-06-01] MEDS: VANCOMYCIN 1,400 MG in SODIUM CHLORIDE 0.9% 250 ML IV SCH (13:28)
[2018-06-01 14:00] VITALS: BP 138/76
[2018-06-01] MEDS: LINAGLIPTIN 5 MG TAB PO SCH (19:43)
[2018-06-01] MEDS: LOVASTATIN 20 MG TABLET PO SCH (19:43)
[2018-06-01 20:36] VITALS: BP 130/76
[2018-06-01] MEDS: metFORMIN XR 500 MG TAB.ER.24H PO SCH (20:57)
[2018-06-02 03:10] VITALS: BP 136/75
[2018-06-02] MEDS: AMPICILLIN/SULBACTAM 3 GM in SODIUM CHLORIDE 0.9% 100 ML IV SCH ×2 (03:45→08:53)
[2018-06-02 06:53] VITALS: BP 115/68
[2018-06-02] MEDS: ASPIRIN 81 MG TABLET EC PO SCH (08:53)
[2018-06-02] MEDS: CALCIUM/VITAMIN D3 250-125 TABLET PO SCH (08:53)
[2018-06-02] MEDS: FUROSEMIDE 20 MG TABLET PO SCH (08:53)
[2018-06-02] MEDS: APIXABAN 2.5 MG TABLET PO SCH (08:53)
[2018-06-02 12:20] VITALS: BP 140/69
== END 2018-06-02 17:06 | DRG 603 ==
LOC: ED 13:31 → EDIP 16:47 → UNDOADMIN 17:06 → 4WST 18:27
PROVIDERS: ADMIT Internal Medicine; ATTEND Internal Medicine
DX: L03.115 Cellulitis of right lower limb (principal); J98.11 Atelectasis; I38 Endocarditis, valve unspecified; L03.116 Cellulitis of left lower limb; E11.9 Type 2 diabetes mellitus without complications; R29.6 Repeated falls; I50.9 Heart failure, unspecified; I11.0 Hypertensive heart disease with heart failure; E78.5 Hyperlipidemia, unspecified; M17.0 Bilateral primary osteoarthritis of knee; I08.0 Rheumatic disorders of both mitral and aortic valves; I48.91 Unspecified atrial fibrillation; Z66 Do not resuscitate; S81.812A Laceration without foreign body, left lower leg, initial encounter; W18.39XA Other fall on same level, initial encounter; E55.9 Vitamin D deficiency, unspecified; H26.9 Unspecified cataract; Z79.01 Long term (current) use of anticoagulants; Z82.3 Family history of stroke; Z79.84 Long term (current) use of oral hypoglycemic drugs; Z95.2 Presence of prosthetic heart valve; I25.2 Old myocardial infarction; Z82.49 Family history of ischemic heart disease and other diseases of the circulatory system; Z90.710 Acquired absence of both cervix and uterus; Z90.49 Acquired absence of other specified parts of digestive tract; Y93.89 Activity, other specified; Y92.89 Other specified places as the place of occurrence of the external cause
CPT/HCPCS: 36415; 70450; 71045; 80048; 80053; 81001; 82607; 82746; 82962; 83880; 84132; 84443; 84484; 85025; 85610; 85730; 87086; 93005; 93306; 99285; G0378; J0295; J0696; J3370; J7030; J7050

== ENCOUNTER → 2018-08-15 | Outpatient (CLI) | payer MEDICARE ==
[~2018-08-15] MED LIST changes: +AMPI3VIA IV; -ASPI-621 PO; +ASPI81TA45 PO; +CA C1TAB63 PO; +VANC1VIA3 IV
[2018-08-15 12:37] LABS: BASOPHILS # (AUTO) 0.03 x10^3/uL (0-0.1); BASOPHILS % (AUTO) 1 % (0-1); EOSINOPHILS # (AUTO) 0.11 x10^3/uL (0-0.4); EOSINOPHILS % (AUTO) 2 % (1-7); LYMPHOCYTES # (AUTO) 1.37 x10^3/uL (1-3.4); LYMPHOCYTES % (AUTO) 26 % (22-44); MD NO; MEAN CORPUSCULAR HEMOGLOBIN 28.3 pg (27.0-34.8); MEAN CORPUSCULAR HGB CONC 32.4 g/dL (32.4-35.8); MEAN CORPUSCULAR VOLUME 87.4 fL (80-100); MEAN PLATELET VOLUME 9.7 fL (7.4-10.4); MONOCYTES # (AUTO) 0.61 x10^3/uL (0.2-0.8); MONOCYTES % (AUTO) 12 % (2-9); NEUTROPHILS # (AUTO) 3.21 x10^3/uL (1.8-6.8); NEUTROPHILS % (AUTO) 60 % (42-75); PLATELET COUNT 183 x10^3/uL (130-400); RED BLOOD COUNT 4.81 x10^6/uL (3.82-5.3)
[2018-08-15 12:52] LABS: % IRON SATURATION 13 % (20-55); IRON LEVEL 48 mcg/dL (50-170); TOTAL IRON BINDING CAPACITY 375 mcg/dL (250-450)
== END | disposition home or self-care (01) ==
LOC: CFH 10:23
PROVIDERS: ATTEND Internal Medicine Cardiovascular Disease
DX: J98.11 Atelectasis (principal); I27.20 Pulmonary hypertension, unspecified; E11.9 Type 2 diabetes mellitus without complications; E78.2 Mixed hyperlipidemia; I11.0 Hypertensive heart disease with heart failure; I50.33 Acute on chronic diastolic (congestive) heart failure; Z95.2 Presence of prosthetic heart valve
CPT/HCPCS: 36415; 71046; 83540; 83550; 85025

== ENCOUNTER 2018-12-15 07:39 | Day surgery (SDC) | payer MEDICARE ==
[~2018-12-15] VITALS: Ht 162.6 cm; Wt 76.4 kg
[~2018-12-15 07:39] MED LIST changes: +APIX5TAB PO; +BUME1TAB21 PO; +METO25TA91 PO
[2018-12-15] MEDS ORDERED: POTA10TA6 PO (08:25)
[2018-12-15] MEDS ORDERED: IRON PO (08:25)
[2018-12-15 08:28] VITALS: BP 121/71
[2018-12-15 08:58] LABS: ANION GAP 9 mmol/L (5-15); CALCIUM 8.9 mg/dL (8.5-10.1); CHLORIDE 113 mmol/L (98-107)
[2018-12-15] MEDS ORDERED: SODIUM CHLORIDE 0.9% 500 ML IV PRN (10:00)
[2018-12-15] MEDS ORDERED: PROPOFOL 10 MG/ML, 20ML ONE (10:12)
== END 2018-12-15 11:20 | disposition home or self-care (01) ==
LOC: CACL 07:39
PROVIDERS: ATTEND Internal Medicine Cardiovascular Disease
DX: I48.92 Unspecified atrial flutter (principal); I48.0 Paroxysmal atrial fibrillation; I10 Essential (primary) hypertension; D50.9 Iron deficiency anemia, unspecified; E11.9 Type 2 diabetes mellitus without complications; Z79.01 Long term (current) use of anticoagulants; Z95.2 Presence of prosthetic heart valve; Z79.84 Long term (current) use of oral hypoglycemic drugs
CPT/HCPCS: 36415; 80048; 92960; 93005; J2704